=== PATIENT | female | born 1950 | race Caucasian/White ===

== ENCOUNTER 2019-01-04 15:25 | Outpatient (CLI) | payer MEDICARE, MEDICAID | END 2019-01-04 16:05 | disposition home or self-care (01) | LOC: ORTHO 15:25 | PROVIDERS: ATTEND Orthopaedic Surgery | DX: S93.402A Sprain of unspecified ligament of left ankle, initial encounter (principal); F17.200 Nicotine dependence, unspecified, uncomplicated; X58.XXXA Exposure to other specified factors, initial encounter; Y93.89 Activity, other specified; Y92.89 Other specified places as the place of occurrence of the external cause; Y99.8 Other external cause status | CPT/HCPCS: G0463 ==

== ENCOUNTER 2019-01-31 15:29 | Outpatient (CLI) | payer MEDICARE, MEDICAID | END 2019-01-31 16:35 | disposition home or self-care (01) | LOC: ORTHO 15:29 | PROVIDERS: ATTEND Orthopaedic Surgery | DX: S82.62XD Displaced fracture of lateral malleolus of left fibula, subsequent encounter for closed fracture with routine healing (principal); F17.200 Nicotine dependence, unspecified, uncomplicated; X58.XXXD Exposure to other specified factors, subsequent encounter | CPT/HCPCS: 73610; G0463 ==

== ENCOUNTER 2019-03-14 16:39 | Outpatient (CLI) | payer MEDICARE, MEDICAID | END 2019-03-14 16:50 | disposition home or self-care (01) | LOC: ORTHO 16:39 | PROVIDERS: ATTEND Orthopaedic Surgery | DX: S82.832D Other fracture of upper and lower end of left fibula, subsequent encounter for closed fracture with routine healing (principal); Z87.891 Personal history of nicotine dependence; X58.XXXD Exposure to other specified factors, subsequent encounter | CPT/HCPCS: 73610; G0463 ==

== ENCOUNTER → 2019-07-11 | Outpatient (CLI) | payer MEDICARE, MEDICAID | END | disposition home or self-care (01) | LOC: ORTHO 15:46 | PROVIDERS: ATTEND Orthopaedic Surgery | DX: S82.832D Other fracture of upper and lower end of left fibula, subsequent encounter for closed fracture with routine healing (principal); Z87.891 Personal history of nicotine dependence; Z88.6 Allergy status to analgesic agent; Z88.2 Allergy status to sulfonamides; X58.XXXD Exposure to other specified factors, subsequent encounter | CPT/HCPCS: 73610; G0463 ==

== ENCOUNTER 2019-10-18 20:40 | Emergency (ER) | payer MEDICARE, MEDICAID ==
[~2019-10-18] VITALS: Ht 172.7 cm; Wt 102.0 kg
[2019-10-18 20:42] VITALS: BP 154/71
[2019-10-18] MEDS ORDERED: normal saline 1000ML IV soln IVB ONE (21:35)
[2019-10-18] MEDS ORDERED: pantoprazole 40 MG vial IV ONE (21:35)
[2019-10-18] MEDS ORDERED: ondansetron/PF 4mg/2ml inj IV ONE (21:35)
[2019-10-18 22:19] LABS: BASOPHILS # (AUTO) 0.1 X10'3 (0-0.2); BASOPHILS % (AUTO) 0.7 % (0-1); EOSINOPHILS # (AUTO) 0.1 X10'3 (0-0.9); EOSINOPHILS % (AUTO) 0.9 % (0-6); HEMOGLOBIN 14.7 g/dl (12.0-16.0); LYMPHOCYTES # (AUTO) 3.5 X10'3 (1.1-4.8); LYMPHOCYTES % (AUTO) 41.7 % (21-51); MEAN CORPUSCULAR HEMOGLOBIN 32.3 PG (27.0-31.0); MEAN CORPUSCULAR HGB CONC 34.3 g/dL (33.0-36.5); MEAN CORPUSCULAR VOLUME 94.3 FL (78-98); MONOCYTES # (AUTO) 0.4 X10'3 (0-0.9); MONOCYTES % (AUTO) 4.8 % (2-12); NEUTROPHILS # (AUTO) 4.3 X10'3 (1.8-7.7); NEUTROPHILS % (AUTO) 51.9 % (42-75); PLATELET COUNT 262 X10'3 (140-440); RED BLOOD COUNT 4.55 X10'6 (4.20-5.60); RED CELL DISTRIBUTION WIDTH 13.6 % (11.5-14.5); WHITE BLOOD COUNT 8.3 X10'3 (4.5-11.0)
[2019-10-18 22:32] LABS: ALANINE AMINOTRANSFERASE 17 U/L (12-78); ALBUMIN 3.5 G/DL (3.4-5.0); ALKALINE PHOSPHATASE 107 IU/L (46-116); ANION GAP 6 (8-16); ASPARTATE AMINO TRANSFERASE 17 U/L (10-37); BILIRUBIN,TOTAL 0.3 MG/DL (0.1-1.0); BLOOD UREA NITROGEN 12 MG/DL (7-18); BUN/CREATININE RATIO 11.9 (6.6-38.0); CALCIUM 9.3 MG/DL (8.5-10.1); CHLORIDE 106 MMOL/L (99-107); CREATININE 1.01 MG/DL (0.40-0.90); GLUCOSE 86 MG/DL (70-104); LIPASE 69 U/L (73-393); POTASSIUM 4.1 MMOL/L (3.5-5.1); SODIUM 141 MMOL/L (135-145); eGFR 55 ML/MIN
[2019-10-19 00:44] LABS: CLARITY,URINE CLEAR (Clear); COLOR,URINE STRAW (Yellow); GLUCOSE, URINE NEGATIVE (Neg); KETONES,URINE NEGATIVE (Neg); LEUKOCYTE ESTERASE ,URINE NEGATIVE (Neg); NITRITES, URINE NEGATIVE (Neg); OCCULT BLOOD,URINE NEGATIVE (Neg); PH,URINE 7.5 (4.8-8.0); PROTEIN,URINE NEGATIVE (Neg); UROBILINOGEN,URINE 0.2 E.U/dL (0.2-1.0)
[2019-10-19 00:45] LABS: UA COLLECTION TYPE CLN CATCH MIDSTREAM
== END 2019-10-19 01:25 | disposition home or self-care (01) ==
LOC: ER 20:40
DX: R10.13 Epigastric pain (principal); R10.11 Right upper quadrant pain; K59.00 Constipation, unspecified; K80.20 Calculus of gallbladder without cholecystitis without obstruction; R11.0 Nausea; J44.9 Chronic obstructive pulmonary disease, unspecified; E11.9 Type 2 diabetes mellitus without complications; G89.29 Other chronic pain; F17.200 Nicotine dependence, unspecified, uncomplicated; Z88.8 Allergy status to other drugs, medicaments and biological substances
CPT/HCPCS: 36415; 71045; 74176; 80053; 81003; 83690; 85025; 96374; 96375; 99285; C9113; J2405; J7030

== ENCOUNTER 2020-05-02 01:24 | Emergency (ER) | payer MEDICARE, MEDICAID ==
[~2020-05-02] VITALS: Ht 172.7 cm; Wt 100.0 kg
[2020-05-02 01:27] VITALS: BP 136/74
[2020-05-02] MEDS ORDERED: PRED20TA PO (02:17)
[2020-05-02] MEDS ORDERED: AMOX500C2 PO (02:17)
[2020-05-02] MEDS ORDERED: predniSONE 20 mg tablet PO ONE (02:20)
== END 2020-05-02 02:37 | disposition home or self-care (01) ==
LOC: ER 01:25
DX: R13.10 Dysphagia, unspecified (principal); J44.9 Chronic obstructive pulmonary disease, unspecified; E11.9 Type 2 diabetes mellitus without complications; G89.29 Other chronic pain; F17.200 Nicotine dependence, unspecified, uncomplicated; G47.30 Sleep apnea, unspecified; Z88.8 Allergy status to other drugs, medicaments and biological substances
CPT/HCPCS: 70490; 99284; J7512

== ENCOUNTER 2020-05-27 00:22 | Emergency (ER) | payer MEDICARE, MEDICAID ==
[~2020-05-27] VITALS: Ht 172.7 cm; Wt 97.7 kg
--- NOTE | 2020-05-27 00:28 | NUR ---
POISON CONTROL CONTACTED: 4-6 HR OBSERVATION (QING) RECOMMEND ACETYLCYSTEINE IF TYLENOL LEVEL IS DETECTABLE DUE TO CHRONIC USE OF MEDICATION. CBC/CMP, UA DRUG SCREEN, TYLENOL AND ASPIRIN LEVEL RECOMMENED
[2020-05-27 01:14] LABS: BASOPHILS % (AUTO) 0.4 % (0-1); EOSINOPHILS # (AUTO) 0.1 X10'3 (0-0.9); EOSINOPHILS % (AUTO) 0.5 % (0-6); HEMATOCRIT 47.5 % (35.0-45.0); HEMOGLOBIN 16.3 g/dl (12.0-16.0); LYMPHOCYTES # (AUTO) 5.5 X10'3 (1.1-4.8); LYMPHOCYTES % (AUTO) 44.1 % (21-51); MEAN CORPUSCULAR HEMOGLOBIN 32.3 PG (27.0-31.0); MEAN CORPUSCULAR HGB CONC 34.3 g/dL (33.0-36.5); MEAN PLATELET VOLUME 8.7 FL (7.4-10.4); MONOCYTES # (AUTO) 0.7 X10'3 (0-0.9); MONOCYTES % (AUTO) 5.6 % (2-12); NEUTROPHILS # (AUTO) 6.2 X10'3 (1.8-7.7); NEUTROPHILS % (AUTO) 49.4 % (42-75); PLATELET COUNT 303 X10'3 (140-440); RED BLOOD COUNT 5.05 X10'6 (4.20-5.60); RED CELL DISTRIBUTION WIDTH 12.6 % (11.5-14.5); WHITE BLOOD COUNT 12.6 X10'3 (4.5-11.0)
[2020-05-27 01:30] LABS: ACETAMINOPHEN 31.1 UG/ML (10-30); ALANINE AMINOTRANSFERASE 44 U/L (12-78); ALBUMIN 3.7 G/DL (3.4-5.0); ALKALINE PHOSPHATASE 152 IU/L (46-116); ANION GAP 8 (8-16); ASPARTATE AMINO TRANSFERASE 23 U/L (10-37); BILIRUBIN,TOTAL 0.4 MG/DL (0.1-1.0); BLOOD UREA NITROGEN 11 MG/DL (7-18); BUN/CREATININE RATIO 9.6 (6.6-38.0); CALCIUM 9.7 MG/DL (8.5-10.1); CHLORIDE 106 MMOL/L (99-107); CREATININE 1.15 MG/DL (0.40-0.90); ETHANOL < 0.010 GM/DL (0.0-0.010); GLUCOSE 142 MG/DL (70-104); POTASSIUM 3.9 MMOL/L (3.5-5.1); SODIUM 143 MMOL/L (135-145); TOTAL CARBON DIOXIDE 28.6 MMOL/L (24-32); TOTAL PROTEIN 7.4 G/DL (6.4-8.2); eGFR 47 ML/MIN
--- NOTE | 2020-05-27 01:34 | NUR ---
pts bottle of norcos counted, documented, and taken to pharmacy. Pt sleeping soundly and ra sats 91%. Placed on 2 liters nc, sats 95% now.
[2020-05-27 02:25] LABS: URINE AMPHETAMINE SCREEN NEGATIVE (Neg); URINE BARBITUATE SCREEN NEGATIVE (Neg); URINE BENZODIAZEPINES SCREEN NEGATIVE (Neg); URINE CANNABINOID SCREEN POSITIVE (Neg); URINE COCAINE SCREEN NEGATIVE (Neg); URINE METHADONE SCREEN NEGATIVE (Neg); URINE OPIATE SCREEN POSITIVE (Neg); URINE PHENCYCLIDINE SCREEN NEGATIVE (Neg)
--- NOTE | 2020-05-27 02:33 | NUR ---
dr. martinez at bedside. pt reports taht she has been regularly taking and perscribed the norcos "for years" . 4 hr tylenol level resulted and reports to myself and Pt that the result is slightly higher than upon arrival 2.5 hr ago. He is calling Poison Control now for further advice about administration of mucomyst. Pt somulant, but awakens to voice and converses appropriately. rr 14 and sats on 2 liters 100%.
[2020-05-27] MEDS ORDERED: acetylcysteine 200 MG/ml 4ml vial PO ONE ×2 (02:40→07:00)
[2020-05-27] MEDS ORDERED: ondansetron/PF 4mg/2ml inj IV ONE (02:45)
[2020-05-27 03:15] LABS: PARTIAL THROMBOPLASTIN TIME 22 SECONDS (22-32)
--- NOTE | 2020-05-27 03:46 | NUR ---
Pt awakened to give mucomyst oral. Pt crying and stating "why...i don't want to live". Pt encouraged to let us help her and to try. With encouragement over 15 minutes, pt finally consented to drink it (mixed with apple juice) and able to tolerate all the dose. Pt to receive an adtl dose in 4 hrs. Pt was given zofran prior to the med. Dr. martinez updated.
[2020-05-27] MEDS ORDERED: WATER IV ONE (03:50)
[2020-05-27] MEDS ORDERED: ACETYLCYSTEINE IV ONE (03:50)
[2020-05-27] MEDS ORDERED: DEXTROSE 5% IV ONE (03:50)
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
[2020-05-27] MEDS ORDERED: ZOLP5TAB8 PO (05:13)
[2020-05-27] MEDS ORDERED: LORA10TA7 PO (05:13)
[2020-05-27] MEDS ORDERED: PIOG15TA8 PO (05:13)
[2020-05-27] MEDS ORDERED: HYDR-3972 PO (05:13)
--- NOTE | 2020-05-27 05:52 | NUR ---
per dr. martinez pt will need next tylenol level drawn at 630, if zero, then 7 am dose of mucomyst not needed.
--- NOTE | 2020-05-27 06:02 | NUR ---
pt awake and sitting up in the bed. Reports hunger. Given sandwich and orange juice and pt is thankful. Reports chronic back and ankle pain. current vss. supp o2 removed as RA sats 95% while awake
--- NOTE | 2020-05-27 06:40 | NUR ---
Assuming care. Pt alert and oriented, tylenol level drawn
[2020-05-27] MEDS ORDERED: ketorolac tromethamine 15mg/ml inj. IV ONE (07:45)
--- NOTE | 2020-05-27 07:58 | NUR ---
Dr. Yuen wants pt to have dose of mucomyst. Pt c/o MD KELSEY notified, will give ordered tylenol
[2020-05-27 09:05] VITALS: BP 117/60
--- NOTE | 2020-05-27 09:45 | NUR ---
Previouse attempt. 1798. HX of DM2. Med Rec done. Mucomist given 2 oral doses. Allergies Aspirin and Metformin. ONly has one kidney. Cooperative. No longer suicidal. Patient to be walked over to ER OF 26.
[2020-05-27] MEDS ORDERED: PIOG15TA67 PO (09:59)
[2020-05-27] MEDS ORDERED: zolpidem 5mg tablet PO PRN (10:00)
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
--- NOTE | 2020-05-27 10:58 | NUR ---
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 Patient to live in his truck or go to a motel. Patient is no longer welcome in his father's home. Patient attempting to talk about his drug use and his favorite drug is cocaine. RN stopped patient and asked him to stop talking about drugs as a good thing because he is lying to himself. His drug use has done nothing but harm him and his relationships. Patient disagreed but did stop talking about drugs. Patient sitting on his bed. Continue to monitor.
--- NOTE | 2020-05-27 11:10 | NUR ---
RN spoke to patient. Patient denies being suicidal at this time. RN explained to the patient how dangerous overdosing on Tylenol can be. Patient appeared shocked. RN advised patient this was a serious attempt. Patient states she had a procedure done to her back by a doctor and she believes her doctor placed something in her brain because she is hearing things. Patient then boks at the notion of this and said "it's crazy I know and unbelieveable. Nevermind". Patient has long history of depression and states she was diagnosed with bipolar d/o but she hated being on the medication then a doctor at [facility] took her off her bipolar medication. Continue to monitor.
--- NOTE | 2020-05-27 12:18 | NUR ---
[facility], evaluating patient. Continue to monitor.
--- NOTE | 2020-05-27 14:20 | NUR ---
Lab drawn per [place] by request of Poison control. Need an additional Liver Function Test since only original drawn and recheck tylenol level.
[2020-05-27 15:02] LABS: ACETAMINOPHEN < 2.0 UG/ML (10-30); ALANINE AMINOTRANSFERASE 36 U/L (12-78); ALBUMIN/GLOBULIN RATIO 0.9 (1.1-1.5); ALKALINE PHOSPHATASE 129 IU/L (46-116); ASPARTATE AMINO TRANSFERASE 18 U/L (10-37); BILIRUBIN,DIRECT 0.1 MG/DL (0-0.3); BILIRUBIN,TOTAL 0.2 MG/DL (0.1-1.0); TOTAL PROTEIN 6.4 G/DL (6.4-8.2)
[2020-05-28] MEDS ORDERED: loratadine 10mg tablet PO SCH (08:00)
[2020-05-28] MEDS ORDERED: pioglitazone 15mg tablet PO SCH (08:00)
== END 2020-05-27 14:35 | disposition home or self-care (01) ==
LOC: ER 00:22
DX: T40.692A Poisoning by other narcotics, intentional self-harm, initial encounter (principal); R51.9 Headache, unspecified; J44.9 Chronic obstructive pulmonary disease, unspecified; G89.29 Other chronic pain; E11.9 Type 2 diabetes mellitus without complications; G47.30 Sleep apnea, unspecified; Z88.8 Allergy status to other drugs, medicaments and biological substances; Z79.899 Other long term (current) drug therapy; Y92.89 Other specified places as the place of occurrence of the external cause
CPT/HCPCS: 36415; 71045; 80053; 80076; 80305; 80320; 80329; 84484; 85025; 85610; 85730; 93005; 96374; 96375; 99285; J1885; J2405

== ENCOUNTER 2024-08-01 06:00 | Emergency (ER) | payer MEDICARE, MEDICAID ==
[~2024-08-01] VITALS: Ht 154.9 cm; Wt 73.0 kg
[~2024-08-01 06:00] MED LIST: HYDR-3972 PO; LORA10TA7 PO; PIOG15TA67 PO; ZOLP5TAB8 PO
[2024-08-01 06:42] LABS: BASOPHILS # (AUTO) 0.1 X10'3 (0-0.2); BASOPHILS % (AUTO) 0.4 % (0-1); EOSINOPHILS % (AUTO) 0.3 % (0-6); HEMATOCRIT 48.1 % (35.0-45.0); HEMOGLOBIN 16.4 g/dl (12.0-16.0); LYMPHOCYTES # (AUTO) 4.1 X10'3 (1.1-4.8); LYMPHOCYTES % (AUTO) 27.8 % (21-51); MEAN CORPUSCULAR HEMOGLOBIN 31.3 PG (27.0-31.0); MEAN CORPUSCULAR HGB CONC 34.1 g/dL (33.0-36.5); MEAN CORPUSCULAR VOLUME 91.9 FL (78-98); MEAN PLATELET VOLUME 8.8 FL (7.4-10.4); MONOCYTES # (AUTO) 0.7 X10'3 (0-0.9); MONOCYTES % (AUTO) 4.5 % (2-12); NEUTROPHILS # (AUTO) 9.9 X10'3 (1.8-7.7); PLATELET COUNT 368 X10'3 (140-440); RED BLOOD COUNT 5.24 X10'6 (4.20-5.60); RED CELL DISTRIBUTION WIDTH 12.8 % (11.5-14.5); WHITE BLOOD COUNT 14.7 X10'3 (4.5-11.0)
[2024-08-01 06:52] LABS: ALBUMIN 4.2 G/DL (3.4-5.0); ANION GAP 8 (8-16); BLOOD UREA NITROGEN 15 MG/DL (7-18); CALCIUM 9.8 MG/DL (8.5-10.1); CHLORIDE 100 MMOL/L (99-107); CREATININE 0.79 MG/DL (0.40-0.90); GLUCOSE 119 MG/DL (70-104); POTASSIUM 3.7 MMOL/L (3.5-5.1); SODIUM 135 MMOL/L (135-145); TOTAL CARBON DIOXIDE 27.4 MMOL/L (24-32); eCRCL 49 ML/MIN; eGFR 72 ML/MIN
[2024-08-01 08:12] VITALS: BP 132/82; PULSE 85; RESP 16; TEMP 98.3; O2SAT 98
== END 2024-08-01 08:22 | disposition home or self-care (01) ==
LOC: ER 06:00
DX: F41.9 Anxiety disorder, unspecified (principal); E11.9 Type 2 diabetes mellitus without complications; G47.30 Sleep apnea, unspecified; J44.9 Chronic obstructive pulmonary disease, unspecified; Z88.8 Allergy status to other drugs, medicaments and biological substances
CPT/HCPCS: 36415; 80048; 84145; 85025; 93005; 99284